=== PATIENT | male | born 1975 | race Caucasian/White ===

== ENCOUNTER 2020-04-18 09:55 | Inpatient (IN) | payer OTHER ==
[~2020-04-18] VITALS: Ht 185.4 cm; Wt 64.1 kg
[2020-04-18] MEDS ORDERED: SODIUM CHLORIDE 0.9% 1,000ML IVBOLUS ONE (10:30)
[2020-04-18] MEDS ORDERED: SODIUM CHLORIDE FLUSH 10ML SYR IVF ONE (10:30)
--- NOTE | 2020-04-18 10:41 | NUR ---
PT BIB FAMILY FOR 2 WEEKS HX OF ABDOMINL PAIN WITH BRB/BLOOD CLOTS IN STOOL FOR LAST 2 DAYS. PT HAS HX OF ULCERATIVE COLITIS WITH COLON RESECTION. PT ON MONITOR AND IN BATHROOM FOR STOOL SAMPLE.
[2020-04-18] MEDS ORDERED: MORPHINE SULFATE 4 MG/ML, 1ML ONE ×3 (10:59→17:28)
[2020-04-18] MEDS: MORPHINE SULFATE 4 MG/ML, 1ML IVPush PRN ×2 (11:03→12:55)
[2020-04-18 11:12] LABS: MEAN CORPUSCULAR HEMOGLOBIN 30.8 pg (27.5-34.5); MEAN CORPUSCULAR HGB CONC 33.2 g/dL (33.2-36.2); MEAN CORPUSCULAR VOLUME 92.9 fL (81-97); MEAN PLATELET VOLUME 7.1 fL (7.4-10.4); PLATELET COUNT 522 x10^3/uL (130-400); RED CELL DISTRIBUTION WIDTH 15.8 % (9.4-14.8)
[2020-04-18 11:23] LABS: ALBUMIN 2.7 g/dL (3.4-5.0); ANION GAP 10 mmol/L (5-15); CALCIUM 9.3 mg/dL (8.5-10.1); CHLORIDE 91 mmol/L (98-107)
[2020-04-18 11:26] LABS: ALANINE AMINOTRANSFERASE 30 U/L (12-78); ALKALINE PHOSPHATASE 162 U/L (45-117); BILIRUBIN,TOTAL 0.5 mg/dL (0.2-1.0); CREATININE 1.26 mg/dL (0.7-1.3); TOTAL PROTEIN 8.5 g/dL (6.4-8.2)
[2020-04-18 11:37] LABS: MD YES
[2020-04-18 11:38] LABS: BAND#(MANUAL) 5.24 x10^3/uL; BANDS%(MANUAL) 22 % (0-7); BASOS#(MANUAL) 0.24 x10^3/uL (0-0.1); BASOS% (MANUAL) 1 % (0-1); LYMPH#(MANUAL) 1.67 x10^3/uL (1-3.4); LYMPHS% (MANUAL) 7 % (22-44); METAMYELOCYTES# (MANUAL) 0.24 x10^3/uL (0-0); METAMYELOCYTES% (MANUAL) 1 % (0-1); MONOS#(MANUAL) 3.33 x10^3/uL (0.3-2.7); MONOS% (MANUAL) 14 % (2-9); SEG#(MANUAL) 13.09 x10^3/uL (1.8-6.8); SEGS% (MANUAL) 55 % (42-75)
[2020-04-18 11:39] LABS: <PLATELET ESTIMATE> INCREASED; <PLT MORPHOLOGY> NORMAL PLT MORPH; <RBC MORPHOLOGY> NORMAL
[2020-04-18 11:56] LABS: CLOSTRIDIUM DIFFICILE ANTIGEN NEGATIVE; CLOSTRIDIUM DIFFICILE TOXIN NEGATIVE (Negative)
--- NOTE | 2020-04-18 12:07 | NUR ---
PT IN CT. PT NEGATIVE FOR C-DIFF.
[2020-04-18] MEDS ORDERED: OMNIPAQUE 350 MG/ML, 100ML BOTTLE ONE (12:19)
[2020-04-18 12:43] LABS: MICROSCOPIC NOT IND
--- NOTE | 2020-04-18 12:50 | NUR ---
CHART UP FOR MD RECHECK. PT AWARE.
--- NOTE | 2020-04-18 12:56 | NUR ---
Pt medicated per emar.
[2020-04-18] MEDS ORDERED: METRONIDAZOLE PMX 500MG/100ML 100 ML IV ONE (13:30)
[2020-04-18] MEDS ORDERED: LEVOFLOXACIN/PMX 750MG/150ML 150 ML IV ONE (13:30)
[2020-04-18] MEDS ORDERED: SODIUM CHLORIDE 0.9% 1,000 ML IV ONE (13:30)
--- NOTE | 2020-04-18 13:30 | NUR ---
PT REPORTS PAIN IS BETTER AFTER MORPHINE. WAITING FOR ROOM ASSIGNMENT.
[2020-04-18] MEDS ORDERED: LEVOFLOXACIN/PMX 750MG/150ML 150 ML ONE (13:40)
--- NOTE | 2020-04-18 14:30 | NUR ---
REPORT TO CAREY SANCHEZ ON THE FLOOR. REPORT GIVEN TO SALES EXEC PRIMARY RN WILLIAM WENT TO LUNCH. AWAITING TRANSPORT.
--- NOTE | 2020-04-18 14:50 | NUR ---
PT GIVEN WATER, OK PER DR. FONTANA. PT REPORTS PAIN IS BETTER.
[2020-04-18 15:40] VITALS: BP 129/89
[2020-04-18 16:05] VITALS: BP 129/87
[2020-04-18] MEDS ORDERED: MORPHINE SULFATE 4 MG/ML, 1ML IVPush PRN (17:30)
[2020-04-18] MEDS ORDERED: ONDANSETRON 2MG/ML, 2ML IVPush PRN (18:30)
[2020-04-18] MEDS ORDERED: hydrALAzine 20 MG/ML, 1ML IVPush PRN (18:30)
[2020-04-18 18:56] LABS: FREE T4 (FREE THYROXINE) 1.38 ng/dL (0.76-1.46)
[2020-04-18 20:11] VITALS: BP 116/77
[2020-04-18] MEDS: NS + 20MEQ KCL 1,000 ML IV SCH (20:39)
[2020-04-18] MEDS: NICOTINE 21 MG/24 HR PATCH.TD24 TD SCH (20:39)
[2020-04-18] MEDS: morphine SULFATE 10 MG/ML, 1ML IVPush PRN (20:40)
[2020-04-19 00:41] VITALS: BP 102/69
[2020-04-19] MEDS: morphine SULFATE 10 MG/ML, 1ML IVPush PRN ×5 (01:50→20:56)
[2020-04-19] MEDS: METRONIDAZOLE PMX 500MG/100ML 100 ML IV SCH ×3 (01:51→17:52)
[2020-04-19] MEDS: NS + 20MEQ KCL 1,000 ML IV SCH ×3 (04:55→20:57)
[2020-04-19 05:45] LABS: ANION GAP 11 mmol/L (5-15); CALCIUM 8.1 mg/dL (8.5-10.1); CHLORIDE 102 mmol/L (98-107); CREATININE 0.85 mg/dL (0.7-1.3); MEAN CORPUSCULAR HEMOGLOBIN 31.2 pg (27.5-34.5); MEAN CORPUSCULAR HGB CONC 33.6 g/dL (33.2-36.2); MEAN CORPUSCULAR VOLUME 92.8 fL (81-97); MEAN PLATELET VOLUME 7.1 fL (7.4-10.4); PLATELET COUNT 457 x10^3/uL (130-400); RED BLOOD COUNT 4.39 x10^6/uL (4.38-5.82); RED CELL DISTRIBUTION WIDTH 15.3 % (9.4-14.8)
[2020-04-19] MEDS ORDERED: GOLYTELY 4,000ML ORAL.SOL PO ONE (06:00)
[2020-04-19 06:08] LABS: MD YES
[2020-04-19 06:12] LABS: <PLATELET ESTIMATE> INCREASED; <PLT MORPHOLOGY> NORMAL PLT MORPH; <RBC MORPHOLOGY> NORMAL; BAND#(MANUAL) 5.28 x10^3/uL; BANDS%(MANUAL) 32 % (0-7); BASOS#(MANUAL) 0.33 x10^3/uL (0-0.1); BASOS% (MANUAL) 2 % (0-1); LYMPH#(MANUAL) 1.49 x10^3/uL (1-3.4); LYMPHS% (MANUAL) 9 % (22-44); METAMYELOCYTES# (MANUAL) 0.17 x10^3/uL (0-0); METAMYELOCYTES% (MANUAL) 1 % (0-1); MONOS#(MANUAL) 1.98 x10^3/uL (0.3-2.7); MONOS% (MANUAL) 12 % (2-9); SEG#(MANUAL) 7.26 x10^3/uL (1.8-6.8); SEGS% (MANUAL) 44 % (42-75); TOXIC GRAN 1+
[2020-04-19 08:46] VITALS: BP 104/66
[2020-04-19] MEDS: PANTOPRAZOLE 40 MG IV IVPush SCH (09:30)
[2020-04-19] MEDS ORDERED: PROPOFOL 100 ML ONE (09:34)
[2020-04-19] MEDS ORDERED: LIDOCAINE-MPF 2% ,5ML ONE (09:51)
[2020-04-19] MEDS ORDERED: PROMETHAZINE 25 MG/ML, 1ML IVPush PRN (10:00)
[2020-04-19] MEDS ORDERED: OXYcodone 5 MG/5 ML ORAL.SOL UDC PO PRN (10:00)
[2020-04-19] MEDS ORDERED: LORazepam 2 MG/ML, 1ML IVPush PRN (10:00)
[2020-04-19] MEDS ORDERED: ACETAMINOPHEN 325 MG TABLET PO PRN (10:00)
[2020-04-19] MEDS ORDERED: ONDANSETRON 2MG/ML, 2ML IVPush PRN (10:00)
[2020-04-19] MEDS ORDERED: FENTANYL PF 100 MCG/2ML IV PRN (10:00)
[2020-04-19 13:41] VITALS: BP 112/68
[2020-04-19] MEDS: LEVOFLOXACIN/PMX 750MG/150ML 150 ML IV SCH (13:56)
[2020-04-19] MEDS: NICOTINE 21 MG/24 HR PATCH.TD24 TD SCH (20:13)
[2020-04-19 22:13] VITALS: BP 104/65
[2020-04-20] MEDS: morphine SULFATE 10 MG/ML, 1ML IVPush PRN ×6 (01:19→21:12)
[2020-04-20] MEDS: METRONIDAZOLE PMX 500MG/100ML 100 ML IV SCH ×3 (01:19→17:38)
[2020-04-20 01:24] VITALS: BP 102/68
[2020-04-20] MEDS: NS + 20MEQ KCL 1,000 ML IV SCH ×2 (02:50→14:55)
[2020-04-20 06:28] LABS: MEAN CORPUSCULAR HEMOGLOBIN 30.6 pg (27.5-34.5); MEAN CORPUSCULAR HGB CONC 32.9 g/dL (33.2-36.2); MEAN PLATELET VOLUME 6.6 fL (7.4-10.4); PLATELET COUNT 487 x10^3/uL (130-400); RED BLOOD COUNT 3.93 x10^6/uL (4.38-5.82); RED CELL DISTRIBUTION WIDTH 15.5 % (9.4-14.8)
[2020-04-20 06:37] LABS: ANION GAP 9 mmol/L (5-15); CALCIUM 7.6 mg/dL (8.5-10.1); CHLORIDE 104 mmol/L (98-107); CREATININE 0.63 mg/dL (0.7-1.3)
[2020-04-20 07:14] LABS: MD YES
[2020-04-20 07:16] LABS: <PLATELET ESTIMATE> INCREASED; <PLT MORPHOLOGY> NORMAL PLT MORPH; <RBC MORPHOLOGY> NORMAL; BAND#(MANUAL) 2.84 x10^3/uL; BANDS%(MANUAL) 18 % (0-7); EOS#(MANUAL) 0.16 x10^3/uL (0.0-0.4); EOS% (MANUAL) 1 % (1-7); LYMPH#(MANUAL) 1.26 x10^3/uL (1-3.4); LYMPHS% (MANUAL) 8 % (22-44); MONOS#(MANUAL) 1.42 x10^3/uL (0.3-2.7); MONOS% (MANUAL) 9 % (2-9); SEG#(MANUAL) 10.11 x10^3/uL (1.8-6.8); SEGS% (MANUAL) 64 % (42-75); TOXIC GRAN 1+
[2020-04-20 07:26] VITALS: BP 104/67
[2020-04-20] MEDS: PANTOPRAZOLE 40 MG IV IVPush SCH (07:52)
[2020-04-20 13:09] VITALS: BP 138/76
[2020-04-20] MEDS: LACTOBACILLUS 1GM/ PACKET PO SCH ×3 (13:14→21:12)
[2020-04-20] MEDS: LEVOFLOXACIN/PMX 750MG/150ML 150 ML IV SCH (14:16)
[2020-04-20 20:12] VITALS: BP 104/69
[2020-04-20] MEDS: NICOTINE 21 MG/24 HR PATCH.TD24 TD SCH (21:12)
[2020-04-21] MEDS: METRONIDAZOLE PMX 500MG/100ML 100 ML IV SCH ×3 (01:43→18:20)
[2020-04-21 01:52] VITALS: BP 104/68
[2020-04-21] MEDS: morphine SULFATE 10 MG/ML, 1ML IVPush PRN ×3 (02:56→20:32)
[2020-04-21 06:01] LABS: MEAN CORPUSCULAR HEMOGLOBIN 30.4 pg (27.5-34.5); MEAN CORPUSCULAR HGB CONC 32.6 g/dL (33.2-36.2); MEAN CORPUSCULAR VOLUME 93.5 fL (81-97); MEAN PLATELET VOLUME 6.9 fL (7.4-10.4); PLATELET COUNT 517 x10^3/uL (130-400); RED BLOOD COUNT 4.49 x10^6/uL (4.38-5.82); RED CELL DISTRIBUTION WIDTH 15.2 % (9.4-14.8)
[2020-04-21] MEDS: LACTOBACILLUS 1GM/ PACKET PO SCH ×4 (06:04→20:31)
[2020-04-21 06:06] LABS: ANION GAP 6 mmol/L (5-15); CALCIUM 8.3 mg/dL (8.5-10.1); CHLORIDE 100 mmol/L (98-107); CREATININE 0.86 mg/dL (0.7-1.3)
[2020-04-21 06:30] LABS: MD YES
[2020-04-21 06:32] LABS: BAND#(MANUAL) 1.72 x10^3/uL; BANDS%(MANUAL) 10 % (0-7); LYMPH#(MANUAL) 1.38 x10^3/uL (1-3.4); LYMPHS% (MANUAL) 8 % (22-44); METAMYELOCYTES# (MANUAL) 0.52 x10^3/uL (0-0); METAMYELOCYTES% (MANUAL) 3 % (0-1); MONOS% (MANUAL) 7 % (2-9); REACTIVE LYMPHS # (MANUAL) 0.34 x10^3/uL (0-0); REACTIVE LYMPHS % (MANUAL) 2 % (0-0); SEG#(MANUAL) 12.04 x10^3/uL (1.8-6.8); SEGS% (MANUAL) 70 % (42-75)
[2020-04-21 06:33] LABS: <PLATELET ESTIMATE> INCREASED; <PLT MORPHOLOGY> NORMAL PLT MORPH; <RBC MORPHOLOGY> NORMAL; TOXIC GRAN 1+
[2020-04-21 06:53] VITALS: BP 106/71
[2020-04-21] MEDS: PANTOPRAZOLE 40 MG IV IVPush SCH (07:39)
[2020-04-21] MEDS: LEVOFLOXACIN/PMX 750MG/150ML 150 ML IV SCH (13:44)
[2020-04-21 14:24] VITALS: BP 111/71
[2020-04-21 19:50] VITALS: BP 121/81
[2020-04-21] MEDS: NICOTINE 21 MG/24 HR PATCH.TD24 TD SCH (20:31)
[2020-04-22] MEDS: morphine SULFATE 10 MG/ML, 1ML IVPush PRN ×2 (00:14→08:37)
[2020-04-22 00:28] VITALS: BP 121/76
[2020-04-22] MEDS: METRONIDAZOLE PMX 500MG/100ML 100 ML IV SCH ×2 (01:58→09:19)
[2020-04-22 06:04] LABS: MEAN CORPUSCULAR HEMOGLOBIN 30.4 pg (27.5-34.5); MEAN CORPUSCULAR VOLUME 92.3 fL (81-97); MEAN PLATELET VOLUME 6.7 fL (7.4-10.4); PLATELET COUNT 536 x10^3/uL (130-400); RED BLOOD COUNT 4.26 x10^6/uL (4.38-5.82); RED CELL DISTRIBUTION WIDTH 15.4 % (9.4-14.8)
[2020-04-22 06:16] LABS: ANION GAP 7 mmol/L (5-15); CALCIUM 8.1 mg/dL (8.5-10.1); CHLORIDE 101 mmol/L (98-107); CREATININE 0.84 mg/dL (0.7-1.3)
[2020-04-22 06:52] LABS: MD YES
[2020-04-22 06:54] LABS: BAND#(MANUAL) 1.04 x10^3/uL; BANDS%(MANUAL) 7 % (0-7); EOS#(MANUAL) 0.15 x10^3/uL (0.0-0.4); EOS% (MANUAL) 1 % (1-7); LYMPH#(MANUAL) 2.24 x10^3/uL (1-3.4); LYMPHS% (MANUAL) 15 % (22-44); METAMYELOCYTES% (MANUAL) 2 % (0-1); MONOS#(MANUAL) 1.64 x10^3/uL (0.3-2.7); MONOS% (MANUAL) 11 % (2-9); SEG#(MANUAL) 9.54 x10^3/uL (1.8-6.8); SEGS% (MANUAL) 64 % (42-75)
[2020-04-22 06:55] LABS: <PLATELET ESTIMATE> INCREASED; <PLT MORPHOLOGY> NORMAL PLT MORPH; POLYCHROMASIA 1+
[2020-04-22 07:03] LABS: HCT (SEDRATE) 39.3 % (39.2-51.8)
[2020-04-22] MEDS: PANTOPRAZOLE 40 MG IV IVPush SCH (08:36)
[2020-04-22] MEDS: LACTOBACILLUS 1GM/ PACKET PO SCH (08:37)
[2020-04-22 09:06] VITALS: BP 108/75
[2020-04-22] MEDS ORDERED: LEVO750T26 PO (11:10)
[2020-04-22] MEDS ORDERED: ACET650S21 PO (11:10)
[2020-04-22] MEDS ORDERED: ACID1GRA3 PO (11:10)
[2020-04-22] MEDS ORDERED: METR500T PO (11:10)
== END 2020-04-22 13:47 | disposition home or self-care (01) | DRG 872 ==
LOC: ED 13:24 → EDIP 13:25 → ED 14:04 → 3N 14:40 → DCLOUNGE 04-22 13:35
PROVIDERS: ADMIT Family Medicine; ATTEND Hospitalist
PROC: 0DBP8ZX Excision of Rectum, Via Natural or Artificial Opening Endoscopic, Diagnostic (ICD-10-PCS; principal; 2020-04-19 11:00)
DX: A41.9 Sepsis, unspecified organism (principal); E87.1 Hypo-osmolality and hyponatremia; K50.90 Crohn's disease, unspecified, without complications; K91.850 Pouchitis; K92.1 Melena; K52.9 Noninfective gastroenteritis and colitis, unspecified; D47.3 Essential (hemorrhagic) thrombocythemia; E86.0 Dehydration; F17.200 Nicotine dependence, unspecified, uncomplicated; Z80.3 Family history of malignant neoplasm of breast; Z80.8 Family history of malignant neoplasm of other organs or systems; Z82.3 Family history of stroke; Z82.49 Family history of ischemic heart disease and other diseases of the circulatory system; Z90.49 Acquired absence of other specified parts of digestive tract
CPT/HCPCS: 36415; 84145; 87046; 96361; 96365; 96375; 96376; 99291; J3490; 74177; 80048; 80053; 81003; 83605; 83690; 84439; 84443; 85025; 85651; 87040; 87324; 88305; G0378; J1956; J2704; J3480; Q9967; C9113; J2270; J7030

== ENCOUNTER 2020-07-24 12:45 | Inpatient (IN) | payer OTHER ==
[~2020-07-24] VITALS: Ht 185.4 cm; Wt 59.6 kg
[~2020-07-24 12:45] MED LIST: ACET650S21 PO; ACID1GRA3 PO; LEVO750T26 PO; METR500T PO
[2020-07-24 14:03] LABS: MEAN CORPUSCULAR HEMOGLOBIN 30.4 pg (27.5-34.5); MEAN CORPUSCULAR HGB CONC 32.9 g/dL (33.2-36.2); MEAN CORPUSCULAR VOLUME 92.6 fL (81-97); MEAN PLATELET VOLUME 7.8 fL (7.4-10.4); PLATELET COUNT 448 x10^3/uL (130-400); RED BLOOD COUNT 5.91 x10^6/uL (4.38-5.82); RED CELL DISTRIBUTION WIDTH 17.4 % (9.4-14.8)
[2020-07-24 14:08] LABS: ALANINE AMINOTRANSFERASE 33 U/L (12-78); ALBUMIN 3.9 g/dL (3.4-5.0); ANION GAP 12 mmol/L (5-15); CALCIUM 10.4 mg/dL (8.5-10.1); CHLORIDE 94 mmol/L (98-107); CREATININE 2.01 mg/dL (0.7-1.3)
[2020-07-24 14:10] LABS: ALKALINE PHOSPHATASE 138 U/L (45-117); BILIRUBIN,TOTAL 0.3 mg/dL (0.2-1.0); TOTAL PROTEIN 9.5 g/dL (6.4-8.2)
[2020-07-24 15:04] LABS: MD YES
--- NOTE | 2020-07-24 15:06 | NUR ---
ASSET PROTECTION GREETER: PT TO ROOM FROM LOBBY
[2020-07-24 15:07] LABS: BAND#(MANUAL) 3.12 x10^3/uL; BANDS%(MANUAL) 19 % (0-7); BASOS#(MANUAL) 0.16 x10^3/uL (0-0.1); BASOS% (MANUAL) 1 % (0-1); LYMPH#(MANUAL) 2.62 x10^3/uL (1-3.4); LYMPHS% (MANUAL) 16 % (22-44); MONOS% (MANUAL) 11 % (2-9); MYELOCYTES# (MANUAL) 0.16 x10^3/uL (0-0); MYELOCYTES% (MANUAL) 1 % (0-0); SEG#(MANUAL) 8.53 x10^3/uL (1.8-6.8); SEGS% (MANUAL) 52 % (42-75)
[2020-07-24 15:08] LABS: <PLATELET ESTIMATE> INCREASED; <PLT MORPHOLOGY> NORMAL PLT MORPH; HYPOCHROMIA 1+; POLYCHROMASIA 1+
--- NOTE | 2020-07-24 15:27 | NUR ---
TASK RN: PT AMBULATED STEADILY TO ROOM WITH RN FROM [facility] NOTED. PT REPORTS CHRONIC ABD PAIN, 05/29, WHICH HAS WORSENED TO INCLUDE INTEMITTENT 07/30 "SPASM". PT ADMITS NAUSEA AND INCREASED BOWEL MOVEMENTS, "UP TO 70 BOWEL MOVEMENTS A DAY". SIGNIFICANT PMH INCLUDES UC AND COMPLETE COLECTOMY. PT DENIES HEMATOCHEZIA OR HEMATEMESIS. DENIES DIZZINESS/WEAKNESS/FEVER/VOMITING. BP/SPO2 MONITOR IN PLACE. IV ESTABLISHED, UNABLE TO DRAW BC X1. REPORT TO PRIMARY RNMARTIN.
[2020-07-24 16:12] LABS: MICROSCOPIC INDICATED
[2020-07-24] MEDS ORDERED: ONDANSETRON 2MG/ML, 2ML ONE (16:22)
[2020-07-24] MEDS ORDERED: MORPHINE SULFATE 4 MG/ML, 1ML ONE ×2 (16:23→18:36)
[2020-07-24] MEDS: MORPHINE SULFATE 4 MG/ML, 1ML IVPush PRN ×2 (16:28→18:40)
[2020-07-24] MEDS ORDERED: ONDANSETRON 2MG/ML, 2ML IVPush ONE (16:30)
[2020-07-24] MEDS ORDERED: SODIUM CHLORIDE 0.9% 1,000ML IVBOLUS ONE (16:30)
--- NOTE | 2020-07-24 16:30 | NUR ---
PT RESTING, VSS. PAIN MANAGABLE
[2020-07-24] MEDS ORDERED: METRONIDAZOLE PMX 500MG/100ML 100 ML IV ONE (18:00)
[2020-07-24] MEDS ORDERED: CEFTRIAXONE PMX 1GM/50ML 50 ML IV ONE (18:00)
[2020-07-24] MEDS ORDERED: METRONIDAZOLE PMX 500MG/100ML 100 ML ONE (18:09)
[2020-07-24] MEDS ORDERED: CEFTRIAXONE PMX 1GM/50ML 50 ML ONE (18:10)
[2020-07-24] MEDS ORDERED: metroNIDAZOLE 5 MG/ML INJ 500 MG in SYRINGE 1 EA IV SCH (18:20)
--- NOTE | 2020-07-24 18:21 | NUR ---
BLOOD CULTURES DRAWN PRIOR TO ABX
[2020-07-24] MEDS ORDERED: LEVOFLOXACIN 750 MG TABLET PO SCH (18:30)
[2020-07-24] MEDS ORDERED: ACETAMINOPHEN 650 MG/20.3 ML UDC PO PRN (18:30)
[2020-07-24] MEDS ORDERED: hydrALAzine 20 MG/ML, 1ML IVPush PRN (18:30)
[2020-07-24] MEDS ORDERED: ACETAMINOPHEN 325 MG TABLET PO PRN (18:30)
[2020-07-24] MEDS ORDERED: LEVOFLOXACIN 750 MG TABLET ONE (18:36)
[2020-07-24 20:14] VITALS: BP 120/84
[2020-07-24] MEDS: FAMOTIDINE 20 MG/2 ML IVPush SCH (20:24)
[2020-07-24] MEDS: OXYcodone/APAP 5/325MG TABLET PO PRN (20:24)
[2020-07-24] MEDS: SODIUM CHLORIDE 0.9% 1,000 ML IV SCH (20:25)
[2020-07-24] MEDS: LACTOBACILLUS 1GM/ PACKET PO SCH (22:41)
[2020-07-24] MEDS: PIPERACILLIN/TAZO/PMX 3.375GM 50 ML IV SCH (22:41)
[2020-07-24] MEDS: NICOTINE 14MG/24 HR PATCH.TD24 TD SCH (23:31)
[2020-07-24] MEDS: ONDANSETRON 2MG/ML, 2ML IVPush PRN (23:31)
[2020-07-24] MEDS: MELATONIN 5 MG TABLET PO PRN (23:31)
[2020-07-24 23:49] LABS: MICROSCOPIC NOT IND
[2020-07-24 23:55] LABS: CHLORIDE,URINE RANDOM 28 mmol/L; POTASSIUM,URINE RANDOM 30 mmol/L
[2020-07-24 23:57] LABS: SODIUM,URINE RANDOM < 5 mmol/L
[2020-07-25 01:37] VITALS: BP 113/72
[2020-07-25] MEDS: METRONIDAZOLE PMX 500MG/100ML 100 ML IV SCH ×3 (01:45→17:52)
[2020-07-25] MEDS: OXYcodone/APAP 5/325MG TABLET PO PRN ×6 (01:45→22:21)
[2020-07-25] MEDS: SODIUM CHLORIDE 0.9% 1,000 ML IV SCH ×3 (04:55→21:42)
[2020-07-25 05:23] LABS: ALBUMIN 2.7 g/dL (3.4-5.0); ANION GAP 7 mmol/L (5-15); CHLORIDE 102 mmol/L (98-107)
[2020-07-25 05:27] LABS: ALANINE AMINOTRANSFERASE 22 U/L (12-78); ALKALINE PHOSPHATASE 88 U/L (45-117); BILIRUBIN,TOTAL 0.2 mg/dL (0.2-1.0); MEAN CORPUSCULAR HGB CONC 33.4 g/dL (33.2-36.2); MEAN CORPUSCULAR VOLUME 92.8 fL (81-97); MEAN PLATELET VOLUME 8.3 fL (7.4-10.4); PLATELET COUNT 410 x10^3/uL (130-400); RED BLOOD COUNT 4.53 x10^6/uL (4.38-5.82); RED CELL DISTRIBUTION WIDTH 17.7 % (9.4-14.8); TOTAL PROTEIN 6.5 g/dL (6.4-8.2)
[2020-07-25] MEDS: LACTOBACILLUS 1GM/ PACKET PO SCH ×4 (06:07→20:22)
[2020-07-25] MEDS: PIPERACILLIN/TAZO/PMX 3.375GM 50 ML IV SCH ×3 (06:08→22:20)
[2020-07-25 06:13] LABS: MD YES
[2020-07-25 06:15] LABS: BAND#(MANUAL) 2.81 x10^3/uL; BANDS%(MANUAL) 17 % (0-7); EOS#(MANUAL) 0.33 x10^3/uL (0.0-0.4); EOS% (MANUAL) 2 % (1-7); LYMPH#(MANUAL) 1.16 x10^3/uL (1-3.4); LYMPHS% (MANUAL) 7 % (22-44); MONOS#(MANUAL) 2.31 x10^3/uL (0.3-2.7); MONOS% (MANUAL) 14 % (2-9); SEGS% (MANUAL) 60 % (42-75)
[2020-07-25 06:16] LABS: <PLATELET ESTIMATE> ADEQUATE; <PLT MORPHOLOGY> NORMAL PLT MORPH; ANISOCYTOSIS 1+
[2020-07-25 07:09] VITALS: BP 105/69
[2020-07-25] MEDS: FAMOTIDINE 20 MG/2 ML IVPush SCH ×2 (09:54→20:22)
[2020-07-25] MEDS: ONDANSETRON 2MG/ML, 2ML IVPush PRN ×2 (09:58→17:51)
[2020-07-25 13:40] VITALS: BP 110/70
[2020-07-25 19:26] VITALS: BP 112/69
[2020-07-25] MEDS: NICOTINE 14MG/24 HR PATCH.TD24 TD SCH (20:27)
[2020-07-25] MEDS: MELATONIN 5 MG TABLET PO PRN (20:27)
[2020-07-26] MEDS: METRONIDAZOLE PMX 500MG/100ML 100 ML IV SCH ×2 (02:04→10:08)
[2020-07-26 04:13] LABS: MEAN CORPUSCULAR HGB CONC 33.2 g/dL (33.2-36.2); MEAN CORPUSCULAR VOLUME 93.3 fL (81-97); MEAN PLATELET VOLUME 7.8 fL (7.4-10.4); PLATELET COUNT 352 x10^3/uL (130-400); RED BLOOD COUNT 3.88 x10^6/uL (4.38-5.82); RED CELL DISTRIBUTION WIDTH 17.3 % (9.4-14.8)
[2020-07-26 04:14] LABS: ANION GAP 6 mmol/L (5-15); CALCIUM 7.7 mg/dL (8.5-10.1); CHLORIDE 109 mmol/L (98-107)
[2020-07-26 04:28] LABS: MD YES
[2020-07-26 04:33] LABS: BAND#(MANUAL) 1.06 x10^3/uL; BANDS%(MANUAL) 10 % (0-7); BASOS#(MANUAL) 0.11 x10^3/uL (0-0.1); BASOS% (MANUAL) 1 % (0-1); EOS#(MANUAL) 0.11 x10^3/uL (0.0-0.4); EOS% (MANUAL) 1 % (1-7); LYMPH#(MANUAL) 2.44 x10^3/uL (1-3.4); LYMPHS% (MANUAL) 23 % (22-44); MONOS#(MANUAL) 1.38 x10^3/uL (0.3-2.7); MONOS% (MANUAL) 13 % (2-9); MYELOCYTES# (MANUAL) 0.21 x10^3/uL (0-0); MYELOCYTES% (MANUAL) 2 % (0-0); SEGS% (MANUAL) 50 % (42-75)
[2020-07-26 04:34] LABS: ANISOCYTOSIS 1+
[2020-07-26 04:35] LABS: <PLATELET ESTIMATE> ADEQUATE; <PLT MORPHOLOGY> NORMAL PLT MORPH
[2020-07-26] MEDS: SODIUM CHLORIDE 0.9% 1,000 ML IV SCH (05:34)
[2020-07-26] MEDS: PIPERACILLIN/TAZO/PMX 3.375GM 50 ML IV SCH (06:22)
[2020-07-26] MEDS: LACTOBACILLUS 1GM/ PACKET PO SCH ×2 (06:22→12:00)
[2020-07-26] MEDS: OXYcodone/APAP 5/325MG TABLET PO PRN ×2 (06:26→10:16)
[2020-07-26 07:06] VITALS: BP 105/67
[2020-07-26] MEDS: FAMOTIDINE 20 MG/2 ML IVPush SCH (07:57)
[2020-07-26] MEDS: ONDANSETRON 2MG/ML, 2ML IVPush PRN (10:08)
[2020-07-26] MEDS ORDERED: LACT1CAP15 PO (11:50)
[2020-07-26] MEDS ORDERED: ONDA4TAB7 PO (11:50)
[2020-07-26] MEDS ORDERED: LEVO750T6 PO (11:50)
[2020-07-26] MEDS ORDERED: METR500T PO (11:50)
== END 2020-07-26 13:04 | disposition home or self-care (01) | DRG 872 ==
LOC: ED 14:32 → EDIP 17:49 → 3N 20:04 → DCLOUNGE 07-26 12:53
PROVIDERS: ADMIT Internal Medicine; ATTEND Family Medicine
DX: A41.9 Sepsis, unspecified organism (principal); E87.1 Hypo-osmolality and hyponatremia; K91.850 Pouchitis; N17.9 Acute kidney failure, unspecified; K50.90 Crohn's disease, unspecified, without complications; D72.829 Elevated white blood cell count, unspecified; E86.0 Dehydration; R79.89 Other specified abnormal findings of blood chemistry; Z90.49 Acquired absence of other specified parts of digestive tract; F17.200 Nicotine dependence, unspecified, uncomplicated; Z91.018 Allergy to other foods; Z80.3 Family history of malignant neoplasm of breast
CPT/HCPCS: 36415; 84145; J3490; 74176; 80048; 80053; 81001; 81003; 82436; 82570; 83036; 83605; 83735; 84100; 84133; 84300; 84443; 85025; 87040; 93976; G0378; J0696; J2405; J2543; J2270; J7030